=== PATIENT | female | born 1975 | race Caucasian/White ===

== ENCOUNTER 2017-07-22 19:33 | Emergency (ER) | payer OTHER ==
[~2017-07-22] VITALS: Ht 152.4 cm; Wt 75.3 kg
[~2017-07-22 19:33] MED LIST: METRONIDAZOLE500 MG PO; NORCO 5-325 TA1 EACH PO; PANTOPRAZOLE SO40 MG PO; ZOFRAN ODT4 MG PO
[2017-07-22] MEDS ORDERED: HALOPERIDOL LACTATE 5 MG/ML VIAL IV ONE (20:15)
[2017-07-22] MEDS ORDERED: ONDANSETRON HCL INJ 2 MG/ML VIAL IV ONE (20:15)
[2017-07-22] MEDS ORDERED: HALOPERIDOL1 MG PO (22:31)
== END 2017-07-22 22:35 | disposition home or self-care (01) ==
LOC: FSED 19:33
DX: R10.84 Generalized abdominal pain (principal); R11.2 Nausea with vomiting, unspecified
CPT/HCPCS: 80053; 80307; 81003; 81025; 85025; 99283

== ENCOUNTER → 2017-08-01 | Day surgery (SDC) | payer OTHER ==
[~2017-08-01] MED LIST changes: +FENTANYL CITRATE/PF 100MCG/2 ML INJ ONE; +HALOPERIDOL1 MG PO; +LIDOCAINE HCL 2% LOCAL INJ 5 ML SDV VIAL INJ ONE; +MIDAZOLAM HCL 2 MG/2 ML VIAL ONE; +PROPOFOL IV EMULSION 10 MG/ML 50 ML VIAL ONE
--- OUTSIDE RECORDS SUMMARY | 2017-08-01 10:16 | XMS REPORT | Continuity of Care Document ---
Author Author [facility] Organization [facility] Address [address] [place] [address] Phone Unavailable Care Team Providers Care Coron[facility] Unit Nurse Name Role Phone CLARK PACHECO MD PCP Insurance Providers Guarantor Elinor Aceves Address [address] [place] [address] Payer [facility] Policy Number [id number] Subscriber's Name Dorina Aceves Relationship 01 Group Number [id number] Group Name [id number] Effective Date 03 Advance Directives Directive Response Recorded Date/Time Does the patient have an advance directive? No 10/20/15 4:00pm If yes, is advance directive on file with [facility]? No 10/20/15 4:00pm If not on file with [facility] will patient provide a copy? No 10/20/15 4:00pm Problems Medical Problem Onset Date Status Abdominal pain 10/18/2015 Acute Medications Current Home Medications Medication Dose Units Route Directions Days Qty Instructions Start Date Haloperidol 1 Mg Tablet 1 Mg Oral Daily as needed for Abdominal Pain 3 Tab 07/22/17 Pantoprazole Sodium (Protonix) 40 Mg Tablet. 40 Mg Oral Daily Past Home Medications Medication Directions Ordered Status Hydrocodone Bit/Acetaminophen ([place] 5-325 Tablet) 1 Each Tablet, 1 Tab Oral Daily Discontinued Metronidazole 500 Mg Tablet, 500 Mg Oral Three Times A Day 10/21/15 Discontinued Ondansetron (Zofran Odt) 4 Mg Tab.rapdis, 4 Mg Oral Every 6 Hours 10/21/15 Discontinued Social History Social History Problem Response Recorded Date/Time Onset Date Status Hx Psychiatric Problems No 10/20/2015 4:00pm Not Applicable Not Applicable Smoking Status Start Date Stop Date Never Smoker Hospital Discharge Instructions No hospital discharge instruction information available. Plan of Care Discharge Date 07/22/17 10:35pm Disposition HOME, SELF-CARE Condition at Discharge Improved Instructions/Education Provided Abdominal Pain - Adult Forms Provided Work/School Excuse Prescriptions See Medication Section Referrals CLARK PACHECO MD Address: [address] [place] [address] [address] [place], [place] [id number] Additional Instructions/Education Call Dr. Pacheco's office first thing in the morning to schedule follow up. You were provided with a few pills for abdominal pain that are the same as the medicine you received in the ER. These are to control the pain until you are seen at follow up by Dr. Pacheco. If your pain is WORSE, not controlled by the medicine, or you have to use all 3 tablets for the pain, or if your Zofran (ondansetron - for nausea/vomiting) does not control your nausea/vomiting, seek immediate medical attention. Functional Status No functional status information available. Allergies, Adverse Reactions, Alerts Allergen Type Severity Reaction Status Last Updated hydromorphone HCl Adverse Reaction Unknown VOMITING Active 07/22/17 Penicillin Allergy Unknown Active 07/09/13 Morphine Adverse Reaction Unknown VOMITING Active 07/22/17 PCN Allergy Mild Active 11/23/09 Immunizations No immunization information available. Vital Signs Acute Vital Signs Vital Response Date/Time Height 5 ft 0 in 07/22/2017 7:49pm Weight 166 lb 07/22/2017 7:49pm Body Mass Index 32.4 kg/m^2 07/22/2017 7:49pm Results No relevant diagnostic test, laboratory data and/or discharge summary information available. Procedures No procedure information available. Encounters Encounter Location Arrival/Admit Date Discharge/Depart Date Attending Provider Departed Emergency Room [facility] 07/22/17 7:33pm 10:35pm ANNA RAMON MD
[2017-08-01 14:08] LABS: WBC,FECAL (FECAL LACTOFERRIN) NEGATIVE (NEGATIVE)
--- NOTE | 2017-08-01 14:08 | Operative Report ---
DATE OF PROCEDURE: August 01, 2017 REFERRING PHYSICIAN: Dr. Kiara Jj. PROCEDURES PERFORMED 1. Esophagogastroduodenoscopy with biopsies. 2. Colonoscopy with polypectomy and biopsy. INDICATIONS FOR EGD: Upper abdominal pain. History of nausea and vomiting. INDICATIONS FOR COLONOSCOPY: Colorectal cancer screening. Father with colon cancer. Intermittent diarrhea, fecal urgency. MEDICATION: Patient was done under MAC. Please see anesthesiologist's note. PROCEDURE: With the patient in the left lateral decubitus position, the flexible fiberoptic Olympus gastroscope was introduced into the esophagus under direct visualization without any difficulty. There was some patchy erythema noted in the distal esophagus. The scope was then advanced with ease into the stomach. Mucosa overlying the antrum and the body revealed some diffuse erythema and moderate edema, and biopsies were obtained and sent to stain for H. pylori. Pylorus appeared to be of normal contour and shape. It was intubated with ease, and the scope was advanced all the way to the 2nd portion of the duodenum. Biopsies were obtained from the proximal 2nd portion to rule out sprue. Mucosa overlying the duodenal bulb appeared to be within normal limits. The scope was then withdrawn back into the stomach and retroflexed. Mucosa overlying the fundus and the cardia appeared to be within normal limits. The scope was then straightened out. The stomach was decompressed. Scope was subsequently withdrawn. Patient tolerated the procedure well. IMPRESSION 1. Distal esophagitis. 2. Gastritis, biopsied. Biopsies sent to stain for H. pylori. 3. Rule out sprue. PLAN: Follow up histology. Increase Protonix to 40 mg 1 p.o. a.c. b.i.d. and add Carafate 1 gram p.o. a.c. t.i.d. and nightly. The patient was then turned around. After adequate lubrication of the anal canal, a flexible fiberoptic Olympus colonoscope was inserted into the rectum with ease and advanced all the way to the cecum. The mucosa overlying the cecum appeared to be within normal limits. The ileocecal valve was intubated. Scope was advanced into the terminal ileum. Biopsies were obtained. The scope was then withdrawn back into the colon. It was then withdrawn slowly. The mucosa overlying the ascending and transverse appeared to be within normal limits. Mild patchy inflammatory changes were noted in the left colon, and random biopsies were obtained. One minute polyp was hot biopsied from the sigmoid colon. The rectum grossly appeared to be within normal limits. The scope was then retroflexed into the distal rectum, and small internal hemorrhoids along with hypertrophic anal papillae were noted. The scope was then straightened out. The rectosigmoid area as well as the distal rectal area were decompressed. Scope was subsequently withdrawn. Patient tolerated the procedure well. IMPRESSION 1. Colitis, left-sided, mild, patchy. Biopsies obtained. 2. Sigmoid colon polyp, hot biopsied. 3. Internal hemorrhoids, none actively bleeding. 4. Hypertrophic anal papillae. PLAN: Follow up histology. Follow up stool studies. Initiate VSL #3 DS one p.o. b.i.d. and Bentyl 10 mg 1 p.o. t.i.d. Patient might benefit from a followup colonoscopy in 5 years. Job#: [id number] cc:KIARA JJ MD
[2017-08-01 14:52] LABS: C DIFFICILE TOXIN A&B AMP PROB NEGATIVE (NEGATIVE)
== END | disposition home or self-care (01) ==
LOC: OR 10:14
PROVIDERS: ATTEND Internal Medicine Gastroenterology
PROC: 0D5N8ZZ Destruction of Sigmoid Colon, Via Natural or Artificial Opening Endoscopic (ICD-10-PCS; principal; 2017-08-01 11:30)
PROC: 0DB98ZZ Excision of Duodenum, Via Natural or Artificial Opening Endoscopic (ICD-10-PCS; 2017-08-01 11:30)
PROC: 0DB68ZZ Excision of Stomach, Via Natural or Artificial Opening Endoscopic (ICD-10-PCS; 2017-08-01 11:30)
DX: K51.50 Left sided colitis without complications (principal); K63.5 Polyp of colon; K29.70 Gastritis, unspecified, without bleeding; K62.89 Other specified diseases of anus and rectum; K20.9 Esophagitis, unspecified; K64.8 Other hemorrhoids; K21.9 Gastro-esophageal reflux disease without esophagitis; K59.00 Constipation, unspecified; J45.909 Unspecified asthma, uncomplicated; G47.33 Obstructive sleep apnea (adult) (pediatric); Z88.0 Allergy status to penicillin; Z88.5 Allergy status to narcotic agent; Z68.31 Body mass index [BMI] 31.0-31.9, adult; Z80.0 Family history of malignant neoplasm of digestive organs
CPT/HCPCS: 43239; 45384; 83630; 83993; 87045; 87177; 87328; 87493; J2001; J2250; 45380

== ENCOUNTER 2021-07-09 17:21 | Emergency (ER) | payer OTHER ==
[~2021-07-09] VITALS: Ht 152.4 cm; Wt 80.3 kg
[~2021-07-09 17:21] MED LIST changes: -FENTANYL CITRATE/PF 100MCG/2 ML INJ ONE; -LIDOCAINE HCL 2% LOCAL INJ 5 ML SDV VIAL INJ ONE; -MIDAZOLAM HCL 2 MG/2 ML VIAL ONE; -PROPOFOL IV EMULSION 10 MG/ML 50 ML VIAL ONE
[2021-07-09] MEDS ORDERED: ESGIC 50-325-41 EACH PO (18:19)
[2021-07-09] MEDS ORDERED: ONDANSETRON ODT4 MG PO (18:19)
== END 2021-07-09 19:40 | disposition home or self-care (01) ==
LOC: FSED 17:33
DX: H53.9 Unspecified visual disturbance (principal); G43.109 Migraine with aura, not intractable, without status migrainosus
CPT/HCPCS: 70450; 80048; 85025; 93005; 99284

== ENCOUNTER → 2024-09-15 | Day surgery (SDC) | payer BC, OTHER ==
[~2024-09-15] MED LIST changes: +ALBUTEROL0.63 MG/3 NEB; +ANTIBIOTIC28.4 GM; +BREZTRI AEROS10.7 GM INH; +DAILY VALUE1 EACH; +DOXYCYCLINE HY100 MG PO; +ESGIC 50-325-41 EACH PO; +ESMOLOL HCL 100MG/10ML 10 MG/ML VIAL ONE; +GLUCAGON FOR INJ 1 MG VIAL ONE; +HYOSCYAMINE SULFATE 0.5 MG/ML INJ ONE; +LIDOCAINE HCL 2% LOCAL INJ 5 ML SDV VIAL INJ ONE; +METOCLOPRAMIDE HCL 10 MG/2ML VIAL ONE; +ONDANSETRON ODT4 MG PO; +PROPOFOL IV EMULSION 10 MG/ML 20 ML VIAL ONE; +VENTOLIN HFA18 GM INH; +[UNRECOGNIZED DRUG - OTHER]
[2024-09-15] MEDS: LACTATED RINGER'S 1,000 ML ONE (11:29)
[2024-09-15 13:43] VITALS: BP 128/78; PULSE 92; RESP 19; O2SAT 97
== END | disposition home or self-care (01) ==
LOC: OR 11:22
PROVIDERS: ATTEND Internal Medicine Gastroenterology
DX: Z12.11 Encounter for screening for malignant neoplasm of colon (principal); Z86.0100 Personal history of colon polyps, unspecified; K31.7 Polyp of stomach and duodenum; K29.00 Acute gastritis without bleeding; K29.50 Unspecified chronic gastritis without bleeding; K29.60 Other gastritis without bleeding; K20.90 Esophagitis, unspecified without bleeding; I85.00 Esophageal varices without bleeding; K44.9 Diaphragmatic hernia without obstruction or gangrene; K57.30 Diverticulosis of large intestine without perforation or abscess without bleeding; K58.9 Irritable bowel syndrome, unspecified; K64.8 Other hemorrhoids; Z87.19 Personal history of other diseases of the digestive system; R74.8 Abnormal levels of other serum enzymes; E11.9 Type 2 diabetes mellitus without complications; J45.909 Unspecified asthma, uncomplicated; N20.0 Calculus of kidney; Z71.89 Other specified counseling; F41.9 Anxiety disorder, unspecified; Z88.6 Allergy status to analgesic agent; Z88.0 Allergy status to penicillin; Z01.810 Encounter for preprocedural cardiovascular examination; Z79.899 Other long term (current) drug therapy; Z68.31 Body mass index [BMI] 31.0-31.9, adult; Z71.3 Dietary counseling and surveillance; Z80.0 Family history of malignant neoplasm of digestive organs
CPT/HCPCS: 36415; 43239; 45378; 82948; 93005; J1610; J1980; J2003; J2470; J2704; J2765; J7121; 43251

== ENCOUNTER → 2024-09-23 | Outpatient (REF) | payer BC ==
[~2024-09-23] MED LIST changes: -ESMOLOL HCL 100MG/10ML 10 MG/ML VIAL ONE; -GLUCAGON FOR INJ 1 MG VIAL ONE; -HYOSCYAMINE SULFATE 0.5 MG/ML INJ ONE; -LIDOCAINE HCL 2% LOCAL INJ 5 ML SDV VIAL INJ ONE; -METOCLOPRAMIDE HCL 10 MG/2ML VIAL ONE; -PROPOFOL IV EMULSION 10 MG/ML 20 ML VIAL ONE
== END ==
LOC: US 07:23
PROVIDERS: ATTEND Internal Medicine Gastroenterology
DX: R74.8 Abnormal levels of other serum enzymes (principal); K76.0 Fatty (change of) liver, not elsewhere classified
CPT/HCPCS: 76705